=== PATIENT | female | born 1930 | race Caucasian/White ===

== ENCOUNTER 2017-12-18 08:38 | Emergency (ER) | payer MEDICARE, BC ==
[~2017-12-18] VITALS: Ht 154.9 cm; Wt 62.5 kg
[~2017-12-18 08:38] MED LIST: ATEN25TA PO; BAYE325T PO; CENTTAB PO; FURO40TA PO; KETO0.0210 EACH EYE; LEVA750T PO; OXYGENTANK NAS.CANULA; PRED20 PO; SYMB160A INH; VENTAER INH
[2017-12-18 08:41] VITALS: BP 141/60; PULSE 86; RESP 18; TEMP 98.3; O2SAT 92
[2017-12-18] MEDS ORDERED: DOXY100C PO (09:38)
[2017-12-18] MEDS ORDERED: NORC5TAB PO (09:38)
[2017-12-18] MEDS ORDERED: PRED20 PO (09:38)
--- NOTE | 2017-12-18 09:38 | PD ---
HPI Chief Complaint: Pain: Acute or Chronic Time Seen by Provider: 09:18 Travel History International Travel<30 days: No Contact w/Intl Traveler<30days: No Traveled to known affect area: No History of Present Illness HPI This is a 87-year-old female here with acute onset of right elbow pain, warmth, erythema since last night. She reports a history of gout with similar symptoms in the past. She denies fever or chills. She denies injury or trauma to the elbow. She describes the pain as aching, constant, worse with movement and slightly relieved with rest. Describes this as similar to prior gouty attacks. She reports eating crabs twice this week which she attributes to the gouty flare as this is caused flares in the past. Symptom severity is moderate. PFSH Past Medical History Arthritis: Yes Anxiety: No Heart Rhythm Problems: Yes ("SKIPPED BEAT") Cancer: No Cardiac Catheterization: Yes Cardiovascular Problems: Yes (ANGIOPLASTY) High Cholesterol: Yes Chest Pain: Yes Congestive Heart Failure: No COPD: Yes Coronary Artery Disease: No Diabetes: No Diminished Hearing: No Endocrine: No Gastrointestinal Disorders: No Gout: Yes Genitourinary: Yes (NEPHROTIC SYNDROME) Heparin Induced Thrombocytopen: No Hypertension: Yes Immune Disorder: No Implanted Vascular Access Dvce: No Musculoskeletal: Yes Neurologic: No Psychiatric: No Reproductive: No Respiratory: Yes Menopausal: Yes Past Surgical History Abdominal Surgery: Yes (HYSTERECTOMY ) Appendectomy: Yes Cardiac Surgery: Yes (ANGIOPLASTY) Coronary Artery Bypass Graft: No Gynecologic Surgery: Yes Hysterectomy: Yes Neurologic Surgery: Yes Oral Surgery: Yes (tonsillectomy ) Tonsillectomy: Yes Other Surgery: Yes (VEIN STRIPPING) Social History Alcohol Use: Yes (OCCASIONAL MIX DRINKS) Tobacco Use: Yes (1/2 PPD) Substance Use: No Allergies-Medications (Allergen,Severity, Reaction): Coded Allergies: allopurinol (Verified Allergy, Severe, Hives, 12/18/17) hydrochlorothiazide (Unverified Allergy, Severe, Nausea/Vomiting, 12/18/17) triamterene (Unverified Allergy, Severe, Nausea/Vomiting, 12/18/17) Reported Meds & Prescriptions Reported Meds & Active Scripts Active Doxycycline Hyclate 100 Mg Cap 100 Mg PO BID 7 Days [place] (Hydrocodone-Acetaminophen) 5 Mg-325 Mg Tab 1 Tab PO Q6H PRN Prednisone 20 Mg Tab 40 Mg PO DAILY Take 40 mg (2 tablets) daily for 5 days Symbicort Inh (Budesonide/Formoterol Fumarate) 160-4.5 Mcg/Act Aero 1 Puff INH Q12HR 30 Days Prednisone 20 Mg Tab 20 Mg PO BID 5 Days Levaquin (Levofloxacin) 750 Mg Tab 750 Mg PO Q48H Oxygen tank (Oxygen) 1 Ea Tank 2 Liter NINFA.CANULA CONTINUOUS Oxygen Concentrator Portable Gaseous 2 L/min via Nasal Cannula Continuous For 99 months Reported Zaditor (Ketotifen Fumarate (Ophth)) 0.025 % Shree 0.035 Drop EACH EYE DAILY Ventolin Hfa 18 GM Inh (Albuterol Sulfate) 90 Mcg/Act Aer 2 Puff INH Q6H PRN Furosemide 40 Mg Tab 40 Mg PO DAILY Centrum Silver (Multiple Vitamins W/ Minerals) 1 Tab 1 Tab PO DAILY Atenolol 25 Mg Tab 25 Mg PO DAILY Jose Carlos Aspirin (Aspirin) 325 Mg Tab 325 Mg PO DAILY Review of Systems Except as stated in HPI: all other systems reviewed are Neg General / Constitutional: No: Fever Eyes: No: Visual changes HENT: No: Headaches Cardiovascular: No: Chest Pain or Discomfort Respiratory: No: Shortness of Breath Gastrointestinal: No: Abdominal Pain Genitourinary: No: Dysuria Musculoskeletal: Positive: Pain Skin: No Rash Neurologic: No: Weakness Physical Exam Narrative GENERAL: Alert well-appearing 87-year-old female SKIN: Warm and dry. HEAD: Normocephalic. EYES:No injection or drainage. NECK: Supple CARDIOVASCULAR: Regular rate and rhythm area no murmur appreciated. RESPIRATORY: Breath sounds equal bilaterally. No accessory muscle use. GASTROINTESTINAL: Abdomen soft, non-tender, nondistended. MUSCULOSKELETAL: No cyanosis. Right upper extremity: Swelling, warmth, erythema to the right elbow over the olecranon. No induration, fluctuance or drainage. No open wounds or abrasions. Patient can fully extend and flex the elbow. 2+ distal pulses. Normal sensation. Brisk cap refill. Data Data Last Documented VS Vital Signs Date Time Temp Pulse Resp B/P (MAP) Pulse Ox O2 Delivery O2 Flow Rate FiO2 12/18/17 08:41 98.3 86 18 141/60 (87) 92 Room Air Orders Orders Dexamethasone Inj (Decadron Inj) (12/18/17 09:45) MDM Medical Decision Making Medical Screen Exam Complete: Yes Emergency Medical Condition: Yes Differential Diagnosis Gouty arthritis versus septic arthritis versus cellulitis Narrative Course 87-year-old female with right elbow pain. This is consistent with her prior gouty attacks. She attributes a high purine diet including shellfish twice this week. She is adamant she's had no fever or chills. She is nontoxic-appearing. The elbow is quite erythematous she will be treated for gouty arthritis versus cellulitis. She has responded to prednisone with prior attacks. She'll be given a shot of Decadron and discharged home on oral prednisone with strict return precautions should she develop fever, chills, increasing pain increasing redness or any new concerning symptom. She rates this plan Diagnosis Primary Impression: Gouty arthritis Referrals: Primary Care Physician Additional Instructions: Follow a low purine diet Stay well hydrated Medication as directed Return if he developed fever, chills, increasing pain, increasing swelling/ redness of the elbow Scripts Doxycycline Hyclate (Doxycycline Hyclate) 100 Mg Cap 100 MG PO BID for Infection for 7 Days, #14 CAP 0 Refills Prov: Maris Rivera 12/18/17 Hydrocodone-Acetaminophen ([place]) 5 Mg-325 Mg Tab 1 TAB PO Q6H Y for PAIN, #12 TAB 0 Refills Prov: Maris Rivera 12/18/17 Prednisone (Prednisone) 20 Mg Tab 40 MG PO DAILY, #10 TAB 0 Refills Take 40 mg (2 tablets) daily for 5 days Prov: Maris Rivera 12/18/17 Disposition: 01 DISCHARGE HOME Condition: Stable Maris Rivera Dec 18, 2017 09:38
[2017-12-18] MEDS ORDERED: DEXAMETHASONE SOD PHOS 4 MG/ML VIAL IM ONE (09:45)
== END 2017-12-18 10:12 | disposition home or self-care (01) ==
LOC: PHED 08:38
DX: M10.9 Gout, unspecified (principal); I10 Essential (primary) hypertension; F17.200 Nicotine dependence, unspecified, uncomplicated
CPT/HCPCS: 96372; 99284; J1100